=== PATIENT | female | born 1955 | race Caucasian/White ===

== ENCOUNTER → 2018-08-10 18:15 | Outpatient (CLI) | payer MEDICARE ==
[2013-01-28 06:33] VITALS: BMI 23.3
[~2018-08-10 18:15] MED LIST: BACTRIM DS TABL1 TAB PO; COLACE100 MG PO; COMBIVENT RESPIM4 GM INH; GLUCOPHAGE500 MG PO; IPRAT-ALBUT 0.5-3 ML NEB; LISINOPRIL5 MG PO; MAALOX ADVANCE355 ML PO; MILK OF MAGNESI30 ML GT; MOTRIN600 MG PO; NEURONTIN800 MG PO; PHENERGAN25 MG RC; PRILOSEC20 MG PO; SEROQUEL100 MG PO; SEROQUEL200 MG PO; TYLENOL 325 MG325 MG GT; ULTRAM50 MG PO; VICOPROFEN 7.5/1 TAB PO; XANAX1 MG PO; ZOLOFT50 MG PO
== END | disposition home or self-care (01) ==
LOC: D.LABREF 18:15
PROVIDERS: ATTEND Podiatrist Foot & Ankle Surgery
DX: L03.116 Cellulitis of left lower limb (principal)